=== PATIENT | male | born 1955 | race Caucasian/White ===

== ENCOUNTER → 2019-08-09 | Outpatient (CLI) | payer BC ==
[~2019-08-09] MED LIST: REGADENOSON 0.4 MG/5 ML DISP.SYRIN. IV ONE
--- NOTE | 2019-08-09 09:15 | PCVCIMAG ---
APPROVED REPORT Indications Stenosis Risk Factors Hypertension: History of Smoking CAD Doppler Spectral Velocity Analysis PSV / EDVPSV / EDV ECA (R) 70 / 13 cm/sECA (L) 67 / 13 cm/s dICA (R) 69 / 25 cm/sdICA (L) 73 / 31 cm/s Adelia (R) 76 / 28 cm/smICA (L) 81 / 32 cm/s pICA (R) 73 / 23 cm/spICA (L) 55 / 16 cm/s Bulb (R) 75 / 20 cm/sBulb (L) 83 / 20 cm/s dCCA (R) 83 / 22 cm/sdCCA (L) 88 / 27 cm/s mCCA (R) 78 / 19 cm/smCCA (L) 78 / 22 cm/s Vert (R) 60 / 16 cm/sVert (L) 41 / 13 cm/s ICA/CCA 0.92ICA/CCA 0.92 Basic Measurements Blood Pressure: Pulses: Right Left RightLeft Brachial(Sitting) 138/41ebYc673/90mmHgTemporal Real Time B-Mode Imaging Vert. (R)AntegradeVert. (L)Antegrade Findings RIGHT CAROTID: The carotid bulb has moderate plaque. The proximal internal carotid artery shows <40% stenosis. The common carotid artery shows no significant stenosis. The external carotid artery shows no significant stenosis. LEFT CAROTID: The carotid bulb has mild plaque. The proximal internal carotid artery shows <40% stenosis. The common carotid artery shows no significant stenosis. The external carotid artery shows no significant stenosis. Conclusion <40% stenosis of the right internal carotid artery with moderate plaque. <40% stenosis of the left internal carotid artery with mild plaque.
--- NOTE | 2019-08-09 11:22 | PCVCIMAG ---
APPROVED REPORT Imaging Protocol: Rest Tc-99m/Stress Tc-99m 1 day Study performed: 08/09/2019 08:30:30 Indication: CAD Patient Location: Out-Patient Stress Nurse: Taylor Barboza RN, Sarah Hernandez RN ND Tech:Jessie Cheemayudy [facility] Ht: 5 ft 9 in Wt: 235 lbs BSA: 2.21 m2 HR: 61 bpm BP: 170/88 mmHg BMI: 34.6 Rhythm: Normal Sinus Rhythm, Right ventricular conduction delay Medical History Medical History: Hyperlipidemia, HTN, CVD, CAD, Former Smoker Medications: Aspirin, Metoprolol, Amlodipine, Irbesartan, Statin, Lasix Allergies: Lisinopril Cardiac Risk Factors: Age Previous Cardiac Procedures: 2012 CABG x4 Pretest Chest Pain Characteristics: No chest pain Meds Held (24 hrs): Metoprolol Resting Data Rest SPECT myocardial perfusion imaging was performed in supine position 45 minutes following the intravenous injection of 9.6 mCi of Tc-99m Sestamibi. Time of rest injection: 829 Date: 08/09/2019 Administration Route: IV Administration Site: Right AC Pharmacologic Stress Pharmacologic stress test was performed by injecting Regadenoson 0.4 mg IV push over 10-15 seconds immediately followed by the intravenous injection of 34.1 mCi of Tc-99m Sestamibi. Time of stress injection: 929 Date: 08/09/2019 Administration Route: IV Administration Site: Right AC Gated Stress SPECT was performed 45 minutes after stress injection. The images were gated to evaluate regional wall motion and calculate left ventricular ejection fraction. Stress Test Details Stress Test: Pharmacologic stress testing performed using 0.4 mg of regadenoson per 5 mL given IV over 10 seconds. Reason for pharmacologic stress test: physical limitation. HRMax Heart Rate (APMHR): 156 bpm Resting HR: 61 bpmTarget HR (85% APMHR): 132 bpm Max HR Achieved: 90 bpm % of APMHR: 57 Recovery HR: 76 bpm BP Resting BP: 170/88 mmHg Max BP: 175/92 mmHg Recovery BP: 158/86 mmHg ECG Resting ECG: Norml Sinus Rhythm, right ventricular conduction delay Stress ECG: Sinus Rhythm, right ventricular conduction delay ST Change: None Maximum ST Deviation: 0 mm Arrhythmia: PVC's Recovery ECG: Sinus Rhythm, Right ventricular conduction delay Recovery ST Change: Normal Recovery ST Deviation: 0 mm Recovery Arrhythmia: None Clinical Reason for Termination: Completed protocol Stress Symptoms: Dyspnea, Lightheaded Symptoms resolved during recovery. Stress ECG Conclusion ECG: Non-ischemic Clinical: Non-ischemic Study Quality Study: Good Study Data Post stress, the left ventricular ejection was 61%.. SSS: 0 SRS: 0 SDS: 0 TID = 1.17. Perfusion No evidence of stress induced ischemia or prior myocardial infarction. Wall Motion Normal left ventricular size and function with no regional wall motion abnormalities. Nuclear Conclusion No evidence of stress induced ischemia or prior myocardial infarction. Normal left ventricular size and function with no regional wall motion abnormalities. Post stress, the left ventricular ejection was 61%. No prior study available for comparison. Interpreted by: Andrew Harvey MD Electronically Approved: 08/09/2019 10:56:13 <Conclusion> ECG: Non-ischemic Clinical: Non-ischemic
== END | disposition home or self-care (01) ==
LOC: PCVCIMAG 09:07
PROVIDERS: ATTEND Internal Medicine
DX: I65.23 Occlusion and stenosis of bilateral carotid arteries (principal); I25.10 Atherosclerotic heart disease of native coronary artery without angina pectoris; I10 Essential (primary) hypertension; E78.5 Hyperlipidemia, unspecified; Z95.1 Presence of aortocoronary bypass graft; Z87.891 Personal history of nicotine dependence; Z79.82 Long term (current) use of aspirin; Z79.899 Other long term (current) drug therapy
CPT/HCPCS: 78452; 93017; 93880; A9500; J2785